=== PATIENT | male | born 1955 | race Caucasian/White ===

== ENCOUNTER → 2025-06-16 10:41 | Outpatient (REF) | payer MEDICARE, OTHER, SELFPAY | LOC: HWRAD 10:41 | PROVIDERS: ATTENDING PHYSICIAN Family Medicine; FAMILY PHYSICIAN Family Medicine | DX: E78.2 Mixed hyperlipidemia (principal) | CPT/HCPCS: 75571 ==

== ENCOUNTER → 2025-06-22 06:51 | Outpatient (REF) | payer MEDICARE, OTHER, SELFPAY | LOC: RSP 06:51 | PROVIDERS: ATTENDING PHYSICIAN Family Medicine; FAMILY PHYSICIAN Family Medicine | DX: E78.2 Mixed hyperlipidemia (principal); J30.2 Other seasonal allergic rhinitis; J45.998 Other asthma | CPT/HCPCS: 94010 ==